=== PATIENT | female | born 1985 | race African-American/Black ===

== ENCOUNTER 2017-05-15 16:40 | Inpatient (IN) | payer OTHER ==
[2017-05-15] MEDS ORDERED: TUBERCULIN PPD 5 TU/0.1ML VIAL ID ONE (17:45)
[2017-05-15] MEDS ORDERED: TUBERCULIN PPD 5 TU/0.1ML SYRINGE (IN PATIENT USE ONLY) ID ONE (17:45)
[2017-05-15] MEDS ORDERED: DINOPROSTONE 10 MG VAGINAL SUPPOSITORY VG ONE (17:45)
[2017-05-15 18:00] VITALS: BMI 37.9
[2017-05-15 19:12] LABS: URIC ACID 4.5 mg/dL (2.6-7.2)
[2017-05-15 19:16] LABS: URINE APPEARANCE SLCLOUDY; URINE BILIRUBIN NEGATIVE (NEGATIVE); URINE BLOOD 1+ (NEGATIVE); URINE COLOR YELLOW; URINE GLUCOSE (UA) NEGATIVE (NEGATIVE); URINE KETONE 1+ (NEGATIVE); URINE LEUK ESTERASE TRACE (NEGATIVE); URINE NITRITE NEGATIVE (NEGATIVE); URINE PROTEIN NEGATIVE (NEGATIVE); URINE UROBILINOGEN NEGATIVE mg/dL (0.2-1.0)
[2017-05-15 19:35] LABS: URINE BACTERIA RARE /hpf (NONE SEEN); URINE MUCUS RARE; URINE RBC 3 /hpf (0-3); URINE WBC 3 /hpf (3-5)
--- NOTE | 2017-05-15 21:02 | PN ---
Progress Note (short form) - Note Progress Note: cx 1 cm 50 vx -3 mi, fhr cat 1, no contraction, cervidil inserted
--- NOTE | 2017-05-15 21:10 | HP ---
Past Medical History - Primary Care Physician PCP:: Filemon Cid - Admission Chief Complaint: 39 weeks, gestational HTN, History of Present Illness: 31 yo f g 2 p0101 edc 05/22/17 with hx og GDM, obesity, admitted for cervidil induction, rba discussed ,no head aches , no blurred vision, no RUQ pain, urine negative for protein History Source: Patient Limitations to Obtaining History: No Limitations - Past Medical History Cardiovascular: Yes: HTN (chronic HTN, on no meds) ...: 2 ...Para: 1 ...: 1 ...LMP: 08/15/16 ... Weeks Gestation by Dates: 39 ...EDC by Dates: 05/22/17 ...EDC by Sono: 05/22/17 Heme/Onc: Yes: Sickle Cell Trait Infectious Disease: Yes: STD's (hx of HSV , on valtex, no recent out break) - Past Surgical History Past Surgical History: Yes: Breast Biopsy Hx Myomectomy: No Hx Transabdominal Cerclage: No - Smoking History Smoking history: Never smoked - Alcohol/Substance Use Hx Alcohol Use: No Home Medications - Allergies Allergies/Adverse Reactions: Allergies Allergy/AdvReac Type Severity Reaction Status Date / Time No Known Allergies Allergy Verified 05/15/17 01:46 - Home Medications Home Medications: Ambulatory Orders Vitamins (Sjr) - 1 tab PO DAILY 03/12/17 Valacyclovir HCl [Valtrex -] 500 mg PO BID 05/15/17 Review of Systems - Review of Systems Constitutional: reports: No Symptoms Eyes: reports: No Symptoms HENT: reports: No Symptoms Neck: reports: No Symptoms Cardiovascular: reports: No Symptoms Respiratory: reports: No Symptoms Gastrointestinal: reports: No Symptoms Genitourinary: reports: No Symptoms Breasts: reports: No Symptoms Reported Musculoskeletal: reports: No Symptoms Integumentary: reports: No Symptoms Neurological: reports: No Symptoms Endocrine: reports: No Symptoms Hematology/Lymphatic: reports: No Symptoms Psychiatric: reports: No Symptoms Physical Exam - Maternity Vital Signs: Vital Signs Temperature 99.0 F 05/15/17 18:00 Pulse Rate 92 H 05/15/17 20:34 Respiratory Rate 20 05/15/17 20:34 Blood Pressure 141/50 05/15/17 20:34 O2 Sat by Pulse Oximetry (%) Constitutional: Yes: Well Nourished, No Distress, Calm Eyes: Yes: WNL, Conjunctiva Clear, EOM Intact HENT: Yes: WNL, Atraumatic, Normocephalic Neck: Yes: WNL, Supple, Trachea Midline Cardiovascular: Yes: WNL, Regular Rate and Rhythm Breast(s): Yes: WNL - Abdominal Exam/OB Fundal Height: 40 Number of Fetuses: Single Presentation: Vertex Contractions: No Intensity: Unaware Monitor Mode: External Heart Rate Location: [facility] Category: I Accelerations: Uniform Decelerations: None - Vaginal Exam/OB Vaginal Bleediing: No Speculum Exam: No Dilatation (cm): 1cm Effacement (%): 50 Amniotic Membrane Status: Intact Presentation: Vertex/Position - Physical Exam Musculoskeletal: Yes: Back Pain Edema: Yes Edema: LLE: 1+, RLE: 1+ Deep Tendon Reflex Grade: Normal +2 Hemorrhage Risk Assessment - Risk Factors High Risk Factors: Yes: None Risk Score: 0 Risk Level: Low Risk Problem List - Problems (1) with 39 completed weeks gestation Code(s): Z3A.39 - 39 WEEKS GESTATION OF (2) Gestational hypertension Code(s): O13.9 - GESTATIONAL HTN W/O SIGNIFICANT PROTEINURIA, UNSP TRIMESTER Qualifiers: Trimester: third trimester Qualified Code(s): O13.3 - Gestational [ -induced] hypertension without significant proteinuria, third trimester (3) Obesity Code(s): E66.9 - OBESITY, UNSPECIFIED Assessment/Plan admit for cervidil induction, rba discussed
[2017-05-15] MEDS ORDERED: BUTORPHANOL TARTRATE 1 MG/ML VIAL IVPUSH PRN (21:13)
[2017-05-16] MEDS ORDERED: DEXTROSE 5%-LACTATED RINGERS 1,000 ML IV ONE (06:35)
--- NOTE | 2017-05-16 08:50 | PN ---
Progress Note (short form) - Note Progress Note: cx 3 cm 80 vx -2 mi, fhr cat 1, irregular contraction , advised pitocin , rba discussed Problem List - Problems (1) with 39 completed weeks gestation Code(s): Z3A.39 - 39 WEEKS GESTATION OF (2) Gestational hypertension Code(s): O13.9 - GESTATIONAL HTN W/O SIGNIFICANT PROTEINURIA, UNSP TRIMESTER Qualifiers: Trimester: third trimester Qualified Code(s): O13.3 - Gestational [ -induced] hypertension without significant proteinuria, third trimester (3) Obesity Code(s): E66.9 - OBESITY, UNSPECIFIED
[2017-05-16] MEDS ORDERED: AMPICILLIN - 2 GM in SODIUM CHLORIDE 100 ML IVPB ONE (10:00)
--- NOTE | 2017-05-16 11:06 | PN ---
Ante-Partal Exam - Subjective Subjective: pt is c/o pain with contractions Vital Signs: Vital Signs Temperature 98.4 F 05/16/17 10:00 Pulse Rate 68 05/16/17 10:00 Respiratory Rate 20 05/16/17 10:00 Blood Pressure 145/79 05/16/17 10:00 O2 Sat by Pulse Oximetry (%) Bleeding: No Headache: No Visual changes: No Right upper quadrant pain: No Pain (scale 1-10): 7 - Contractions Contractions: Yes Regularity: Regular Intensity: Mod/Strong Monitor Mode: External - Exam during Labor Heart Rate: 130 Variability: Moderate Heart Rate Location: Midline Category: I Monitor Accelerations: Present Monitor Decelerations: None Exam: Vaginal Dilatation (cm): 4 Effacement (%): 80 Amniotic Membrane Status: Intact Presentation: Vertex Station: -3 Remarks: Adequate gynecoid pelvimetry - Intrapartum Hemorrhage Risk Medium Risk Factors: None High Risk Factors: None Risk Score: 0 Risk Level: Low Risk - Assessment/Plan Assessment/Plan: 31yo P2 with at [id number] induced with chronic HTN and superimposed preeclampsia. The tracing is Category I and fetus does not require intervention. Labor is progressing to active phase. The pt requested epidural anesthesia. Anesthesia consult called.
[2017-05-16] MEDS ORDERED: FENTANYL/BUPIVACAINE/NS/PF - PCEA - 50 ML DISP.SYRIN EP SCH (11:30)
[2017-05-16] MEDS ORDERED: ELECTROLYTE-148 SOLN 1,000 ML IV SCH (11:30)
--- NOTE | 2017-05-16 13:07 | PN ---
Ante-Partal Exam - Subjective Subjective: No complaints Vital Signs: Vital Signs Temperature 98.4 F 05/16/17 10:00 Pulse Rate 72 05/16/17 12:15 Respiratory Rate 20 05/16/17 12:15 Blood Pressure 128/76 05/16/17 12:15 O2 Sat by Pulse Oximetry (%) 100 05/16/17 12:15 Bleeding: No Headache: No Visual changes: No Right upper quadrant pain: No Pain (scale 1-10): 0 - Contractions Contractions: Yes Regularity: Regular Intensity: Unaware Monitor Mode: External - Exam during Labor Heart Rate: 120 Variability: Moderate Heart Rate Location: Midline Category: I Monitor Accelerations: Present Monitor Decelerations: None Exam: Vaginal Dilatation (cm): 5 Effacement (%): 80 Amniotic Membrane Status: Ruptured (AROM) Amniotic Fluid: Clear Presentation: Vertex Station: -3 - Intrapartum Hemorrhage Risk Medium Risk Factors: None High Risk Factors: None Risk Score: 0 Risk Level: Low Risk - Assessment/Plan Assessment/Plan: Progressing in active phase. tracing is Category I. Continue to monitor.
--- NOTE | 2017-05-16 14:47 | PN ---
Progress Note (short form) - Note Progress Note: 31 yo P 1 @ 39wks indused for Chronic HTN with likely superimposed mild PEC, assymptomatic, comfortable with epidural FHR 130s Category 1 TOCO: Q 2-3min ctx VE: /-3 MF status reasuring
--- NOTE | 2017-05-16 17:18 | PN ---
Delivery - Delivery Vaginal Delivery: No Problems Type of Anesthesia: Epidural Episiotomy/Laceration: None EBL (cc): 300 Delivery, Single - Stages of Labor Date 1st Stage Initiatied: 05/17/17 Time 1st Stage Initiated: 10:00 Date 2nd Stage Initiated: 05/17/17 Time 2nd Stage Initiated: 16:15 Date of Delivery: 05/17/17 Time of Delivery: 16:49 Date Placenta Delivered: 05/17/17 Time Placenta Delivered: 17:00 Placenta: Yes: Spontaneous - Condition of Home Security Alarm Installer/Brim Presser Present: No Gender: Female Weight: 7 lb 1 oz Position: Left, Right, OA - 1 Minute Total Score: 9 5 Minutes Total Score: 9 - [place] Feeding Plan Initial Plan: Exclusive throughout hospitalization Remarks - Remarks Remarks: Uncomplicated delivery of the head and shoulders baby rested on maternal abdomen, delayed cord clamping
[2017-05-16] MEDS ORDERED: ACETAMINOPHEN 325 MG TABLET (FP) PO PRN (17:19)
[2017-05-16] MEDS ORDERED: BISACODYL 10 MG SUPP.RECT RC PRN (17:19)
[2017-05-16] MEDS ORDERED: BENZOCAINE 20% 57 GM BOTTLE TP PRN (17:19)
[2017-05-16] MEDS ORDERED: WITCH HAZEL 50% (TUCKS) 40 PAD/JAR PAD TP PRN (17:19)
[2017-05-16] MEDS ORDERED: IBUPROFEN 600 MG TABLET (FP) PO PRN (17:19)
[2017-05-16] MEDS ORDERED: METHYLERGONOVINE MALEATE 0.2 MG/1 ML AMP IM PRN (17:19)
[2017-05-16] MEDS ORDERED: BENZOCAINE 28 GM HEMORRHOIDAL OINTMENT TP PRN (17:19)
[2017-05-16] MEDS ORDERED: D5W-LR W/ 20 UNITS OXYTOCIN 1,000 ML IV SCH (17:30)
[2017-05-16] MEDS ORDERED: AMPICILLIN - 1 GM in SODIUM CHLORIDE 100 ML IVPB ONE (17:41)
[2017-05-16] MEDS: LABETALOL HCL 200 MG TABLET (FP) PO SCH ×2 (18:10→22:00)
[2017-05-16] MEDS: FERROUS SO4 325 MG TABLET (FP) PO SCH (21:28)
--- NOTE | 2017-05-17 08:04 | PN ---
Post Progress Note - Subjective Subjective: 31 yo P 2 now no complains, no MILLER, no visual changes, pain well controlled attempting to breast feed, ambulating Post Day: 1 Type of Delivery: Vital Signs: Vital Signs Temperature 98.7 F 05/17/17 06:00 Pulse Rate 70 05/17/17 06:00 Respiratory Rate 18 05/17/17 06:00 Blood Pressure 136/85 05/17/17 06:00 O2 Sat by Pulse Oximetry (%) 100 05/16/17 16:15 Breast Exam: Yes: Soft Uterus: Yes: Fundus Firm Abdomen/GI: Yes: Abdomen soft Lochia: Yes: Rubra Lochia, amount: Moderate Extremities: Yes: Calves non-tender Perineum: Yes: Intact Activity: Ambulating - Labs Labs: CBC Retic Count 2.56 % (0.5-1.5) H 05/15/17 18:32 Assessment/Plan 31yo P2 now s/p Pregestational HTN with superimposed PEC VSS, Afibrile, no s/s of PEC Restarted on Labetalol 200mg BID, BPs are well controlled will follow labs Routine PP care, BF safety consultant
[2017-05-17 08:32] LABS: BASOPHIL 0.3 % (0-2.0); EOSINOPHIL 0.3 % (0-4.5); MCH 26.5 pg (25.7-33.7); MCHC 32.3 g/dl (32.0-36.0); MEAN PLT VOLUME 8.3 fl (7.5-11.1); PLATELET COUNT 228 K/MM3 (134-434); RDW 15.5 % (11.6-15.6); WHITE BLOOD COUNT 15.7 K/mm3 (4.0-10.0)
[2017-05-17] MEDS: LABETALOL HCL 200 MG TABLET (FP) PO SCH ×2 (09:25→21:46)
[2017-05-17] MEDS: FERROUS SO4 325 MG TABLET (FP) PO SCH ×2 (09:26→21:46)
[2017-05-17] MEDS: PRENATAL VITAMINS W/ FOLIC ACID TABLET (FP) PO SCH (09:26)
[2017-05-17] MEDS ORDERED: SENNOSIDES/DOCUSATE COMBO (SENNA PLUS) TABLET (UD) PO PRN (22:00)
[2017-05-18] MEDS: FERROUS SO4 325 MG TABLET (FP) PO SCH ×2 (09:19→21:40)
[2017-05-18] MEDS: PRENATAL VITAMINS W/ FOLIC ACID TABLET (FP) PO SCH (09:19)
[2017-05-18] MEDS: LABETALOL HCL 200 MG TABLET (FP) PO SCH ×2 (09:19→21:39)
[2017-05-18] MEDS ORDERED: DIPHTH,PERTUSS(ACELL),TET 0.5 ML DISP.SYRIN IM ONE (10:00)
[2017-05-18] MEDS ORDERED: NIFEdipine E.R. 30 MG TABLET (FP) PO ONE (10:45)
--- NOTE | 2017-05-18 14:17 | PN ---
Post Progress Note - Subjective Subjective: 31 yo P2 now s/p , induced for Superimposed Preeclampsia No complains, no MILLER, no visual changes Post Day: 2 Type of Delivery: Vital Signs: Vital Signs Temperature 98.3 F 05/18/17 09:00 Pulse Rate 86 05/18/17 13:54 Respiratory Rate 18 05/18/17 13:54 Blood Pressure 136/88 05/18/17 13:54 O2 Sat by Pulse Oximetry (%) 100 05/16/17 16:15 Breast Exam: Yes: Soft Uterus: Yes: Fundus Firm Abdomen/GI: Yes: Abdomen soft Lochia: Yes: Rubra Lochia, amount: Small Extremities: Yes: Calves non-tender Perineum: Yes: Intact Activity: Ambulating - Labs Labs: CBC WBC 15.7 K/mm3 (4.0-10.0) H D 05/17/17 07:35 RBC 4.20 M/mm3 (3.60-5.2) 05/17/17 07:35 Hgb 11.1 GM/dL (10.7-15.3) 05/17/17 07:35 Hct 34.4 % (32.4-45.2) 05/17/17 07:35 MCV 82.0 fl (80-96) 05/17/17 07:35 MCH 26.5 pg (25.7-33.7) 05/17/17 07:35 MCHC 32.3 g/dl (32.0-36.0) 05/17/17 07:35 RDW 15.5 % (11.6-15.6) 05/17/17 07:35 Plt Count 228 K/MM3 (134-434) 05/17/17 07:35 MPV 8.3 fl (7.5-11.1) 05/17/17 07:35 Neutrophils % 80.0 % (42.8-82.8) 05/17/17 07:35 Lymphocytes % 12.1 % (8-40) D 05/17/17 07:35 Monocytes % 7.3 % (3.8-10.2) 05/17/17 07:35 Eosinophils % 0.3 % (0-4.5) 05/17/17 07:35 Basophils % 0.3 % (0-2.0) 05/17/17 07:35 Retic Count 2.56 % (0.5-1.5) H 05/15/17 18:32 Haptoglobin 53 mg/dL (34-200) 05/15/17 18:32 Assessment/Plan 31yo P2 now s/p Pregestational HTN with superimposed PEC VSS, Afibrile, no s/s of PEC Restarted on Labetalol 200mg BID, BPs are well controlled Routine PP care, BF integrity consultant Plan to d/c in am
--- NOTE | 2017-05-18 21:42 | DS ---
Physical Exam-RAILROAD OPERATOR Vital Signs: Vital Signs Temperature 98.3 F 05/18/17 09:00 Pulse Rate 104 H 05/18/17 18:00 Respiratory Rate 20 05/18/17 18:00 Blood Pressure 136/80 05/18/17 18:00 O2 Sat by Pulse Oximetry (%) 100 05/16/17 16:15 Constitutional: Yes: Well Nourished HENT: Yes: WNL Neck: Yes: WNL Cardiovascular: Yes: WNL, Regular Rate and Rhythm Respiratory: Yes: WNL, CTA Bilaterally Gastrointestinal: Yes: WNL, Normal Bowel Sounds, Soft Pelvis: Yes: WNL External Genitalia: Yes: Normal Vaginal Exam: Yes: Normal Cervix: Yes: Normal ....Post : Yes: Uterus firm, Uterus non-tender Breast(s): Yes: WNL Musculoskeletal: Yes: WNL Integumentary: Yes: WNL Neurological: Yes: WNL ...Motor Strength: WNL Psychiatric: Yes: WNL Labs: CBC, BMP 05/17/17 07:35 Delivery - Delivery Vaginal Delivery: No Problems Type of Anesthesia: Epidural Episiotomy/Laceration: None EBL (cc): 300 Delivery, Single - Stages of Labor Date 1st Stage Initiatied: 05/17/17 Time 1st Stage Initiated: 10:00 Date 2nd Stage Initiated: 05/17/17 Time 2nd Stage Initiated: 16:15 Date of Delivery: 05/17/17 Time of Delivery: 16:49 Time Placenta Delivered: 17:00 Placenta: Yes: Spontaneous - Condition of Senior Facilities Manager/Supplemental Manager Present: No Gender: Female Weight: 7 lb 1 oz Position: Left, Right, OA Total Hours ROM (Hrs/Mins): 4hrs - 1 Minute Total Score: 9 5 Minutes Total Score: 9 - [place] Feeding Plan Initial Plan: Exclusive throughout hospitalization Discharge Summary Reason For Visit: INDUCTION OF LABOR Current Active Problems Gestational hypertension (Acute) Obesity (Acute) with 39 completed weeks gestation (Acute) Condition: Good - Instructions Diet, Activity, Other Instructions: Physical activity Resume your normal everyday activity as tolerated no heavy lifting or exercise until seen by your surgeon. You may walk unlimited anastasiia of and climb stairs. You may resume driving the car when you feel safe and comfortable behind the wheel. No sexual activity as instructed. Wound care If you have a bandage, leave it on, and keep dry for 48-72 hours. After that time discard the outer bandage. If they are tapes on the skin under the out of bandage leave them in place. They will peel off in the next 7 to 10 days. Do Not Peel them off. You may shower the day after surgery. If there are tapes present on the skin, you may shower over them. Diet There are no dietary restrictions. Eat healthy, high-fiber foods. Drink 6 to 8 glasses of liquid each day. This will assist in keeping your bowels are regular. Pain management You may take Tylenol or acetaminophen or Ibuprofen (for example, Motrin, Advil etc.) from my pain prescription medication is ordered should be taken as prescribed for moderate to severe pain. Call MD for any of the following: Severe pain not relieved by medication Fever of 101 or higher Excessive bleeding or drainage on dressing Inability to urinate Disposition: HOME - Home Medications Comprehensive Discharge Medication List: Ambulatory Orders Vitamins (Sjr) - 1 tab PO DAILY 03/12/17 Valacyclovir HCl [Valtrex -] 500 mg PO BID 05/15/17
[2017-05-19 08:43] VITALS: BP 126/80; PULSE 73; TEMP 98.7
[2017-05-19] MEDS: FERROUS SO4 325 MG TABLET (FP) PO SCH (09:38)
[2017-05-19] MEDS: PRENATAL VITAMINS W/ FOLIC ACID TABLET (FP) PO SCH (09:39)
[2017-05-19] MEDS: LABETALOL HCL 200 MG TABLET (FP) PO SCH (09:39)
== END 2017-05-19 13:00 | disposition home or self-care (01) | DRG 560 ==
LOC: JLDR 16:40 → J3W 05-16 20:30
PROVIDERS: ADMIT Obstetrics & Gynecology; ATTEND Obstetrics & Gynecology
PROC: 3E0P7GC Introduction of Other Therapeutic Substance into Female Reproductive, Via Natural or Artificial Opening (ICD-10-PCS; 2017-05-15)
PROC: 10E0XZZ Delivery of Products of Conception, External Approach (ICD-10-PCS; principal; 2017-05-17)
DX: O14.03 Mild to moderate pre-eclampsia, third trimester (principal); O13.3 Gestational [pregnancy-induced] hypertension without significant proteinuria, third trimester; O99.214 Obesity complicating childbirth; E66.9 Obesity, unspecified; Z68.37 Body mass index [BMI] 37.0-37.9, adult; Z3A.39 39 weeks gestation of pregnancy; Z37.0 Single live birth
CPT/HCPCS: 36415; 59409; 81003; 81015; 82977; 83010; 84450; 84460; 84550; 85025; 85044; 90715